=== PATIENT | female | born 1975 | race Caucasian/White ===

== ENCOUNTER 2017-01-01 10:46 | Day surgery (SDC) | payer OTHER ==
[~2017-01-01] VITALS: Ht 170.2 cm; Wt 69.0 kg
[2017-01-01] VITALS (13 sets, daily range): BP systolic 105–118; BP diastolic 61–78; PULSE 72–96; RESP 16–20; Ht 170.2 cm; Wt 69.0 kg
--- NOTE | 2017-01-01 08:11 | PREOPHP ---
DATE OF ADMISSION: 01/01/2017 PREOPERATIVE DIAGNOSIS: Missed at 9 weeks. The patient is a 41-year-old 1, last menstrual period 10/03/2016 with an estimated date of c onfinement of 07/10/2017 with intrauterine at 11 weeks 5 days by dates; however, on ultras ound, the baby is measures 9 weeks 2 days and there is no cardiac motion. She had no bleeding and n o cramping whatsoever. The day before surgery she had a little bit of dark brown discharge. Blood t ype is AB positive. PAST MEDICAL HISTORY: None. PAST SURGICAL HISTORY: None except for her wisdom teeth, but she was not put to sleep. ALLERGY: TO DICLOFENAC ONLY. SOCIAL HISTORY: Negative. MEDICATIONS: vitamins only. PHYSICAL EXAMINATION: The patient is 5 feet 3 inches. HEART: Regular rate and rhythm. LUNGS: Clear to auscultation. ABDOMEN: Soft, nontender. Blood type is AB positive. ASSESSMENT: Missed at 9 weeks. PLAN: Dilatation and curettage. Dictated By: BHARGAVI MATAMOROS/MARGO Conf#: [id number] DID#: [id number]
[~2017-01-01 10:46] MED LIST: LACTATED RINGER'S 1,000 ML IV ONE
[2017-01-01 12:29] LABS: INR 1.12; PROTIME 14.4 Sec (12.2-14.2); PT RATIO 1.1
[2017-01-01 12:30] LABS: PARTIAL THROMBOPLASTIN TIME 25.2 Sec (25.0-35.0)
[2017-01-01] MEDS ORDERED: LIDOCAINE 100 MG SYRINGE ONE (12:52)
[2017-01-01] MEDS ORDERED: FENTAnyl 50 MCG/ML VIAL ONE (12:52)
[2017-01-01] MEDS ORDERED: MIDAZOLAM 1 MG/ML 2 ML INJ ONE (12:52)
[2017-01-01] MEDS ORDERED: DEXAMETHASONE 4 MG/ML 1 ML INJ ONE (12:52)
[2017-01-01] MEDS ORDERED: ONDANSETRON 4 MG INJ ONE (12:52)
[2017-01-01] MEDS ORDERED: KETOROLAC 30 MG INJ ONE (12:52)
[2017-01-01] MEDS ORDERED: SUCCINYLCHOLINE CHLORIDE 100 MG/5 ML SYG IV ONE (12:52)
[2017-01-01] MEDS ORDERED: PROPOFOL 20 ML ONE (12:52)
[2017-01-01] MEDS ORDERED: FENTAnyl 50 MCG/ML VIAL IV PRN ×3 (13:30)
[2017-01-01] MEDS ORDERED: TRIMETHOBENZAMIDE 100 MG/ML VIAL IM PRN (13:30)
[2017-01-01] MEDS ORDERED: MIDAZOLAM 1 MG/ML 2 ML INJ IV PRN (13:30)
[2017-01-01] MEDS ORDERED: ONDANSETRON 4 MG INJ IV PRN (13:30)
[2017-01-01] MEDS ORDERED: hydrALAzine 20 MG INJ IV PRN (13:30)
[2017-01-01] MEDS ORDERED: HYDROmorphONE (0.2 MG/ML) 10ML SYG IV PRN ×3 (13:30)
[2017-01-01] MEDS ORDERED: MEPERIDINE 25 MG INJ IV PRN (13:30)
[2017-01-01] MEDS ORDERED: DIPHENHYDRAMINE 50 MG INJ IV PRN (13:30)
[2017-01-01] MEDS ORDERED: LABETALOL HCL 20MG INJ IV PRN (13:30)
[2017-01-01] MEDS ORDERED: EPHEDrine SULFATE 50 MG/5 ML SYG IV PRN (13:30)
[2017-01-01] MEDS ORDERED: METHYLERGONOVINE 0.2 MG INJ ONE (13:46)
--- NOTE | 2017-01-01 15:09 | PD.PPDC ---
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
--- NOTE | 2017-01-05 18:50 | OPR ---
DATE OF OPERATION: 01/01/2017 PREOPERATIVE DIAGNOSIS: Missed and cervical polyp. POSTOPERATIVE DIAGNOSIS: Missed and cervical polyp. OPERATION PERFORMED: Dilatation with suction and sharp curettage. Removal of cervical polyp. SURGEON: Carl Collins MD ANESTHESIOLOGIST: Dr. Garcia. ANESTHESIA: General anesthesia. ESTIMATED BLOOD LOSS: 75 mL. PATHOLOGY: Cervical polyp and the uterine curettings sent to pathology. PROCEDURE FOLLOWS: The patient was brought to the operating room, placed on the operating table, and was placed under general anesthesia. Her legs were then brought up into vaginal hysterectomy s tirrups, and she was prepped and draped in the usual sterile fashion. A weighted speculum was placed into the vaginal vault. The cervix was grasped with a tenaculum. Th ere was an obvious polyp there that was grasped with ring forceps and twisted off, to be sent to [facility] separate from everything else. The cervix was then dilated with Elly dilators. The uterus sounded to 8 cm. The 7-mm rigid curved curet was then selected, attached to the suction equipment, and the uterine contents were evacuated over several passes, rotating the tip and withdrawing. When no more tissue was coming out, then used a sharp curet to scrape all the martinez as well as the fundus . There was minimal tissue left remaining. The suction curet was placed 1 additional time. At the end of procedure, the patient had some brisk bleeding from inside of the canal, so placed pressure on the cervix, and gave the patient some Methergine throughout to 5 minutes, and the bleeding greatl y diminished, and the procedure was terminated. The vault was cleans. Speculum was taken out of th e vault. The perineum was clean. The patient's legs were brought back down into full supine position, and she was awakened from gener al anesthesia, having tolerated the procedure well. Of note, her blood type is AB positive. Patimichele t presented to the recovery room in excellent condition. Plan for discharge the same day. Dictated By: CARL MATAMOROS/MARGO Conf#: [id number] DID#: [id number]
== END 2017-01-01 16:00 | disposition home or self-care (01) ==
LOC: SDS 10:46
PROVIDERS: ATTEND Obstetrics & Gynecology
DX: O02.1 Missed abortion (principal); N84.1 Polyp of cervix uteri
CPT/HCPCS: 59820; 85049; 85610; 85730; J0330; J1100; J1885; J2001; J2210; J2250; J2405; J3010